=== PATIENT | female | born 2005 | race Two or more races ===

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

== ENCOUNTER 2024-05-07 01:05 | Emergency (ER) | payer OTHER, MEDICAID ==
[~2024-05-07] VITALS: Ht 157.5 cm; Wt 80.4 kg
[~2024-05-07 01:05] MED LIST changes: -PREN-153 OR; +PREN1TAB71 OR
[2024-05-07 01:31] VITALS: BP 123/70; PULSE 83; RESP 18; TEMP 98.5; O2SAT 97
--- NOTE | 2024-05-07 02:47 | ED.PDOC ---
Eye-HPI HPI Comments This is a 18-year-old female presents to the ED chief complaint dental pain. Patient complaining of right upper and lower jaw dental pain sharp and shooting in nature 8/10 on pain scale states it shoots up her cheek to the right side of her head. Taken [id number] pain relievers with minimal relief. has a dental appointment on Wednesday next week. She denies fevers, chills, trauma, difficulty breathing, shortness breath, chest pain, difficulty swallowing. Chief Complaint: Tooth Pain Time Seen by MD: 01:29 Primary Care Provider: RYAN Reviewed Notes: Nurses Notes, Medications, Allergies Allergies: Coded Allergies: Iodine (Verified Allergy, Intermediate, HIVES, 04/17/18) Home Meds Active Scripts Ibuprofen (Ibuprofen) 600 Mg Tab, 1 TAB PO TID PRN for 3 Days, #9 TAB Prov:SCOTTIE TOLLIVER [employer] 05/07/24 Amoxicillin & Pot Clavulanate (AUGMENTIN TABLET) 875 Mg Tb, 1 TAB PO BID for 7 Days, #14 TAB Prov:SCOTTIE TOLLIVER [employer] 05/07/24 Reported Medications Vit W/ Ferrous Fumara (PNV PLUS MULTIVI) Plus Tab, 1 OR, TAB 10/06/19 Information Source: Patient Mode of Arrival: Ambulatory Past Medical History PAST MEDICAL HISTORY: Denies Surgical History: Denies all surgeries HOB GRINDER History: No Pertinent HOB GRINDER History Family History Family History: Reviewed,noncontributory to illness Social History Smoker: Non-Smoker Alcohol: Denies ETOH Use Drugs: Denies Drug Use Lives In: Home Constitutional: denies: chills, diaphoresis, fatigue, fever, malaise, sweats, weakness, others EENTM: reports: others (Right upper jaw dental pain); denies: blurred vision, double vision, ear bleeding, ear discharge, ear drainage, ear pain, ear ringing, eye pain, eye redness, hearing loss, mouth pain, mouth swelling, nasal discharge, nose bleeding, nose congestion, nose pain, photophobia, tearing, throat pain, throat swelling, voice changes Respiratory: denies: cough, hemoptysis, orthopnea, SOB at rest, shortness of breath, SOB with excertion, stridor, wheezing, others Cardiovascular: denies: chest pain, dizzy spells, diaphoresis, Dyspnea on exertion, edema, irregular heart beat, left arm pain, lightheadedness, palpitations, PND, syncope, others Gastrointestinal: denies: abdomen distended, abdominal pain, blood streaked bowels, constipated, diarrhea, dysphagia, difficulty swallowing, hematemesis, me gabbi, nausea, poor appetite, poor fluid intake, rectal bleeding, rectal pain, vomiting, others Genitourinary: denies: abnormal vagina bleeding, burning, dyspareunia, dysuria, flank pain, frequency, hematuria, incontinence, pain, , vagina discharge, urgency, others Neurological: denies: dizziness, fainting, headache, left sided numbness, left sided weakness, numbness, paresthesia, pre-existing deficit, right sided numbness, right sided weakness, seizure, speech problems, tingling, tremors, weakness, others Musculoskeletal: denies: back pain, gout, joint pain, joint swelling, muscle pain, muscle stiffness, neck pain, others Integumetry: denies: bruises, change in color, change in hair/nails, dryness, laceration, lesions, lumps, rash, wounds, others Allergic/Immunocompromised: denies: Difficulty Healing, Frequent Infections, Hives, Itching, others Hematologic/Lymphatic: denies: anemia, blood clots, easy bleeding, easy bruising, swollen glands, others Endocrine: denies: excessive hunger, excessive sweating, excessive thirst, excessive urination, flushing, intolerance to cold, intolerance to heat, unexplained weight gain, unexplained weight loss, others Psychiatric: denies: anxiety, bipolar disorder, depression, hopeless, panic disorder, schizophrenia, sleepless, suicidal, others Physical Exam General Appearance: No Apparent Distress, Normal HEENT: Pharynx Normal, TMs Normal, Other (Right lower molar number 47 noted decay with surrounding erythema and trace edema in the gum no noted obvious abscess.) Neck: Full Range of Motion, Non-Tender, Normal, Normal Inspection Respiratory: Chest Non-Tender, Lungs Clear, No Accessory Muscle Use, No Respiratory Distress, Normal Breath Sounds Cardiovascular: No Edema, No JVD, No Murmur, No Gallop, Normal Peripheral Pulses, Regular Rate/Rhythm Breast Exam: Deferred Gastrointestinal: No Organomegaly, Non Tender, No Pulsatile Mass, Normal Bowel Sounds, Soft Genitalia: Deferred Pelvic: Deferred Rectal: Deferred Extremities: No calf tenderness, Normal capillary refill, Normal inspection, Normal range of motion, Non-tender, No pedal edema Musculoskeletal : Apperance: Normal Neurologic: Alert, cook helper dessert II-XII nml as Tested, No Motor Deficits, Normal Affect, Normal Mood, No Sensory Deficits Cerebellar Function: Normal Reflexes: Normal Skin: Dry, Normal Color, Warm Lymphatic: No Adenopathy Was a procedure done? Was a procedure done?: No EENT DIFF Eye: N/A Sore Throat: Peritonsillar Abscess, Peritonsillar Cellulitis, Streptococcal, Viral Pharyngitis X-Ray, Labs, Meds, VS Vital Signs Date Time Temp Pulse Resp B/P (MAP) Pulse Ox O2 Delivery O2 Flow Rate FiO2 05/07/24 01:31 98.5 83 18 123/70 (87) 97 Current Medications Medications (Trade) Dose Ordered Sig/Sander Route Start Time Stop Time Status Last Admin Ketorolac Tromethamine (Toradol Injection) 60 mg ONCE ONCE IM 05/07/24 02:45 05/07/24 02:46 DC 05/07/24 03:14 X-Ray, Labs, Meds, VS Comment Given 60 mg Toradol IM reports improvement in pain rates pain 3/10 on pain scale from 10/10 pain. Requesting Discharge at this time. Start trial of Augmentin twice daily x7 days. Ibuprofen 600 mg t.i.d.. Advised to keep her appointment and follow up with the dentist on Wednesday. ER return precautions given patient indicated understanding agrees with discharge plan of care. Reevaluation 1ST: Improved Patient Education/Counseling: Diagnosis, Treatment, Prognosis, Need For Follow Up Family Education/Counseling: No Family Present Departure 1 Departure Time of Disposition: 02:49 Impression: Primary Impression: Infected dental caries Disposition: 01 HOME / SELF CARE / HOMELESS Condition: Stable e-Prescriptions Ibuprofen (Ibuprofen) 600 Mg Tab 1 TAB PO TID PRN for 3 Days, #9 TAB Prov: SCOTTIE TOLLIVER 05/07/24 Amoxicillin & Pot Clavulanate (AUGMENTIN TABLET) 875 Mg Tb 1 TAB PO BID for 7 Days, #14 TAB Prov: SCOTTIE TOLLIVER 05/07/24 Discharged With: Self Critical Care Note Critical Care Time?: No Stability Stability form required: No SCOTTIE TOLLIVER May 07, 2024 02:47
[2024-05-07] MEDS ORDERED: IBUP-1454 PO (02:50)
[2024-05-07] MEDS ORDERED: AUG875T PO (02:50)
[2024-05-07] MEDS: KETOROLAC TROMETH 60MG/2ML VIAL IM ONE (03:14)
== END 2024-05-07 03:19 | disposition home or self-care (01) ==
LOC: ER 01:05
DX: K02.9 Dental caries, unspecified (principal)
CPT/HCPCS: 96372; 99283; J1885